=== PATIENT | male | born 1995 | race Caucasian/White ===

== ENCOUNTER 2016-08-19 21:35 | Emergency (ER) | payer BC, OTHER ==
[~2016-08-19] VITALS: Ht 180.3 cm; Wt 66.4 kg
[2016-08-19 21:39] VITALS: TEMP 36.8; Ht 180.3 cm; Wt 66.4 kg
[2016-08-19 22:26] LABS: HEMATOCRIT 42.9 % (42-52); MEAN CORPUSCULAR HGB CONC 36.8 g/dl (32-36); MEAN PLATELET VOLUME 9.9 fL (7.4-10.4); PLATELET COUNT 216 K/uL (130-400); RED BLOOD COUNT 4.93 M/uL (4.7-6.1); WHITE BLOOD COUNT 10.45 K/uL (4.8-10.8)
[2016-08-19 22:29] LABS: URINE APPEARANCE CLEAR (CLEAR); URINE BILIRUBIN NEG (NEG); URINE COLOR YELLOW; URINE NITRITE NEG (NEG); URINE SPECIFIC GRAVITY 1.023 (1.000-1.030); UROBILINOGEN NEG (NEG); ZZUR CULT IF INDIC CLEAN CATCH NO
[2016-08-19 22:32] LABS: MANUAL MICROSCOPIC REQUIRED? NO; REVIEW REQ? NO
--- NOTE | 2016-08-19 22:35 | DIAGNOSTIC IMAGING REPORT ---
CHEST 2 VIEWS ROUTINE CLINICAL HISTORY: Persistent cough, shortness of breath, anorexia. COMPARISON STUDY: No previous studies for comparison. FINDINGS: The cardiac and mediastinal contours are normal. There is no evidence of focal pulmonary consolidation. There is no evidence of failure. No pleural effusions are visualized.[ IMPRESSION: No active disease in the chest. Electronically signed by: Geo Bui M.D. 08/19/2016 10:34 PM Dictated Date/Time: 08/19/2016 10:34 PM
[2016-08-19 22:36] LABS: INR 1.2 (0.9-1.1); PROTHROMBIN TIME (PATIENT) 13.1 SECONDS (9.0-12.0)
[2016-08-19 22:46] LABS: CALCIUM 9.1 mg/dl (8.5-10.1); CREATININE 1.3 mg/dl (0.60-1.40); POTASSIUM 3.4 mmol/L (3.5-5.1)
[2016-08-19 22:56] LABS: THYROID STIMULATING HORMONE 1.61 uIu/ml (0.300-4.500)
[2016-08-19 23:00] LABS: BASO % 0.3 %; BASO ABS # 0.03 K/uL (0-0.2); COMPLETE YES; EOS % 0.1 %; IG% 0.3 %; LYMPH % 33.7 %; LYMPH ABS # 3.52 K/uL (1.2-3.4); MONO % 6.7 %; NEUT % 58.9 %
[2016-08-19] MEDS ORDERED: OPTIRAY 320 IV PRN (23:15)
--- NOTE | 2016-08-20 00:43 | EMERGENCY ROOM VISIT NOTE ---
History First contact with patient: 21:51 Chief Complaint: ILLNESS Stated Complaint: DARK URINE, LOW BACK PAIN, SMALL APETTITE, SOB History of Present Illness The patient is a 20 year old male who presents to the Emergency Room with multiple complaints over the past few months. The patient states that he is concerned he may be in kidney failure. He states that his urine has been dark and he has been having intermittent low back pain, which he initially thought was musculoskeletal. He states that he becomes short of breath when playing sports, which is not normal for him. He reports that whenever he eats protein, he feels nauseous immediately. He reports he has been craving ice water. He states he had mononucleosis last semester and feels he has not fully recovered. He has had a cough for the past few months. The patient has not been seen by any other health care providers for the symptoms. He rates his overall discomfort a 3/10. The patient denies urinary symptoms, chest pain, shortness of breath, abdominal pain, neck pain, headache or sore throat. He denies any blood in stools or changes in bowel movements. The patient does admit that he has been taking creatine supplements recently. Review of Systems A complete 10-point Review of Systems was discussed with the patient, with pertinent positives and negatives listed in the History of Present Illness. All remaining Review of Systems questions can be considered negative unless otherwise specified. Social History Smoking Status: Current Every Day Smoker Current/Historical Medications No Active Prescriptions or Reported Meds Allergies Coded Allergies: No Known Allergies (Unverified , 08/19/16) Physical Exam Vital Signs Date Time Temp Pulse Resp B/P Pulse Ox O2 Delivery O2 Flow Rate FiO2 08/20/16 00:59 62 18 105/70 98 08/19/16 23:07 69 18 129/73 99 Room Air 08/19/16 21:39 36.8 99 18 144/88 97 Room Air Physical Exam VITALS: Vitals are noted on the nurse's note and reviewed by myself. Vital signs stable. GENERAL: This is a 20-year-old male, in no acute distress, nondiaphoretic, well- developed well-nourished. SKIN: Capillary reflex less than 2 seconds. HEENT: Normocephalic. PERRLA. EOMI. Nares patent. Mucous membranes moist. Neck is supple without nuchal rigidity. HEART: Regular rate and rhythm without murmurs gallops or rubs. LUNGS: Clear to auscultation bilaterally without wheezes, rales or rhonchi. ABDOMEN: Positive bowel sounds x 4. Soft, nontender to palpation. MUSCULOSKELETAL: Full range of motion. Strength 5/5 throughout. NEURO: Patient was alert and oriented to person place and time. Medical Decision & Procedures ER Provider Diagnostic Interpretation: CHEST 2 VIEWS ROUTINE CLINICAL HISTORY: Persistent cough, shortness of breath, anorexia. COMPARISON STUDY: No previous studies for comparison. FINDINGS: The cardiac and mediastinal contours are normal. There is no evidence of focal pulmonary consolidation. There is no evidence of failure. No pleural effusions are visualized.[ IMPRESSION: No active disease in the chest. CT ABDOMEN & PELVIS: No acute findings. No free fluid. No free air. The bowel is normal caliber. Appendix is normal. Liver, gallbladder, pancreas, spleen, kidneys and adrenals are unremarkable. Osseous structures are intact. Radiologist: Wilmar Damon MD Laboratory Results 08/19/16 22:14 Red Blood Count 4.93, Mean Corpuscular Volume 87.0, Mean Corpuscular Hemoglobin 32.0, Mean Corpuscular Hemoglobin Concent 36.8, Mean Platelet Volume 9.9, Neutrophils (%) (Auto) 58.9, Lymphocytes (%) (Auto) 33.7, Monocytes (%) (Auto) 6.7, Eosinophils (%) (Auto) 0.1, Basophils (%) (Auto) 0.3, Neutrophils # (Auto) 6.16, Lymphocytes # (Auto) 3.52, Monocytes # (Auto) 0.70, Eosinophils # (Auto) 0.01, Basophils # (Auto) 0.03 08/19/16 22:14 Test 08/19/16 22:14 White Blood Count 10.45 K/uL (4.8-10.8) Red Blood Count 4.93 M/uL (4.7-6.1) Hemoglobin 15.8 g/dL (14.0-18.0) Hematocrit 42.9 % (42-52) Mean Corpuscular Volume 87.0 fL (80-100) Mean Corpuscular Hemoglobin 32.0 pg (25-34) Mean Corpuscular Hemoglobin Concent 36.8 g/dl (32-36) Platelet Count 216 K/uL (130-400) Mean Platelet Volume 9.9 fL (7.4-10.4) Neutrophils (%) (Auto) 58.9 % Lymphocytes (%) (Auto) 33.7 % Monocytes (%) (Auto) 6.7 % Eosinophils (%) (Auto) 0.1 % Basophils (%) (Auto) 0.3 % Neutrophils # (Auto) 6.16 K/uL (1.4-6.5) Lymphocytes # (Auto) 3.52 K/uL (1.2-3.4) Monocytes # (Auto) 0.70 K/uL (0.11-0.59) Eosinophils # (Auto) 0.01 K/uL (0-0.5) Basophils # (Auto) 0.03 K/uL (0-0.2) RDW Standard Deviation 40.6 fL (36.4-46.3) RDW Coefficient of Variation 12.7 % (11.5-14.5) Immature Granulocyte % (Auto) 0.3 % Immature Granulocyte # (Auto) 0.03 K/uL (0.00-0.02) Red Blood Cell Morphology Unremarkable Prothrombin Time 13.1 SECONDS (9.0-12.0) Prothromb Time International Ratio 1.2 (0.9-1.1) Activated Partial Thromboplast Time 26.0 SECONDS (21.0-31.0) Partial Thromboplastin Ratio 1.0 Urine Color YELLOW Urine Appearance CLEAR (CLEAR) Urine pH 5.0 (4.5-7.5) Urine Specific [place] 1.023 (1.000-1.030) Urine Protein NEG (NEG) Urine Glucose (UA) NEG (NEG) Urine Ketones 2+ (NEG) Urine Occult Blood NEG (NEG) Urine Nitrite NEG (NEG) Urine Bilirubin NEG (NEG) Urine Urobilinogen NEG (NEG) Urine Leukocyte Esterase NEG (NEG) Anion Gap 12.0 mmol/L (3-11) Est Creatinine Clear Calc Drug Dose 85.8 ml/min Estimated GFR () 91.7 Estimated GFR (Non- 79.1 BUN/Creatinine Ratio 17.0 (10-20) Calcium Level 9.1 mg/dl (8.5-10.1) Total Bilirubin 1.8 mg/dl (0.2-1) Direct Bilirubin 0.3 mg/dl (0-0.2) Aspartate Amino Transf (AST/SGOT) 36 U/L (15-37) Alanine Aminotransferase (ALT/SGPT) 26 U/L (12-78) Alkaline Phosphatase 90 U/L (45-117) Total Creatine Kinase 942 U/L (39-308) Total Protein 7.6 gm/dl (6.4-8.2) Albumin 4.6 gm/dl (3.4-5.0) Thyroid Stimulating Hormone (TSH) 1.610 uIu/ml (0.300-4.500) Medical Decision Differential diagnosis includes infection, metabolic abnormalities, musculoskeletal pain, among others. The patient was evaluated as above. Labs were drawn and IV access was obtained. Imaging studies were performed and read by radiology as above. The patient is a 20-year-old male presenting with multiple symptoms. He is concerned he may be kidney failure. Labs revealed no leukocytosis, anemia or concerning electrolyte abnormalities. Kidney and liver functions were within normal limits. Bilirubin was minimally elevated. CPK was found to be elevated , consistent with the patient's recent creatine use. Urinalysis was unremarkable. Chest x-ray was unremarkable. CT of the abdomen and pelvis was performed and did not show any abnormalities of the kidneys or other acute abnormalities. The patient will follow-up with [facility] for further evaluation of these symptoms. The patient's case was reviewed with Dr. Ely, ED attending physician, who agreed with my assessment and treatment plan. He verbalized understanding of my assessment and treatment plan and was discharged home in good condition. Impression Primary Impression: Low back ache Departure Information Dispostion Home / Self-Care Condition GOOD Prescriptions No Active Prescriptions or Reported Meds Referrals [facility] (PCP) Patient Instructions My [facility] Additional Instructions Follow up with S this week for further evaluation. Rest and drink plenty of fluids. Return to the emergency department with worsening of your current condition or any new/concerning symptoms. Problem Qualifiers Primary Impression: Low back ache
[2016-08-20 00:59] VITALS: BP 105/70; PULSE 62; O2SAT 98
--- NOTE | 2016-08-20 06:48 | DIAGNOSTIC IMAGING REPORT ---
ABDOMEN AND PELVIS CT WITH IV CONTRAST CT DOSE: 265.37 mGy.cm HISTORY: Pain dark urine, low back pain TECHNIQUE: Multiaxial CT images of the abdomen and pelvis were performed following the use of intravenous contrast. COMPARISON STUDY: None. FINDINGS: The lung bases are clear. The liver, spleen, gallbladder, pancreas, kidneys, and adrenal glands are within normal limits. No bowel wall thickening or obstruction. The pelvic organs are unremarkable. No suspicious lytic or blastic osseous lesions. Trace amount of pericolonic infiltrative change right paracolic gutter. No associated findings are present. This may be reactive. IMPRESSION: Trace pericolonic infiltrative change right paracolic gutter. Study otherwise is negative. Electronically signed by: Zenon Perry M.D. 08/20/2016 6:47 AM Dictated Date/Time: 08/20/2016 6:44 AM
== END 2016-08-20 01:01 | disposition home or self-care (01) ==
LOC: C.EDB 21:39
DX: M54.5 Low back pain (principal); F17.200 Nicotine dependence, unspecified, uncomplicated

== ENCOUNTER → 2017-03-27 | Outpatient (CLI) | payer BC, OTHER | END | disposition home or self-care (01) | LOC: C.RDSM 14:08 | PROVIDERS: ATTEND Physical Medicine & Rehabilitation Sports Medicine | DX: S63.601A Unspecified sprain of right thumb, initial encounter (principal); X58.XXXA Exposure to other specified factors, initial encounter ==